=== PATIENT | female | born 1990 | race Caucasian/White ===

== ENCOUNTER 2025-01-06 10:34 | Emergency (ER) | payer OTHER, SELFPAY ==
[2025-01-06 10:48] VITALS: BP 112/78
[2025-01-06 11:07] LABS: % Basophils 0.3 % (0-2); % Eosinophils 0.3 % (0-6); % Immature Granulocytes 0.3 % (0-0.5); % Lymphocytes 12.6 % (20.5-51.1); % Monocytes 2.8 % (1.7-9.3); % Neutrophils 83.7 % (42.2-75.2); Absolute Lymphocytes 1.7 10^3/uL (1.2-3.4); Absolute Monocytes 0.4 10^3/uL (0.1-0.6); Absolute Neutrophils 11.1 10^3/uL (1.4-6.5); Hematocrit 44.2 % (37.0-47.0); Hemoglobin 14.9 g/dL (12.0-16.0); Mean Corp Hgb Conc. 33.7 g/dL (33.0-37.0); Mean Corpuscular Hgb 29.7 pg (27.0-31.0); Mean Platelet Volume 8.9 fL (7.4-10.4); Nucleated Red Blood Cells % 0 %; Platelet Count 350 10^3/uL (130-400); Red Blood Cell Count 5.02 10^6/uL (4.20-5.40); Red Cell Dist. Width 11.9 % (11.5-14.5); White Blood Cell Count 13.3 10^3/uL (4.8-10.8)
[2025-01-06 11:20] LABS: ALT (SGPT) 17 U/L (0-35); AST (SGOT) 26 U/L (14-36); Albumin 4.8 g/dl (3.5-5.0); Alkaline Phosphatase 49 U/L (38-126); Blood Urea Nitrogen 17 mg/dl (7-17); Calcium 10.2 mg/dl (8.4-10.2); Carbon Dioxide 25 mmol/L (22-30); Chloride 101 mmol/L (98-107); Glucose 97 mg/dl (70-99); Lipase 139 U/L (23-300); Potassium 4.4 mmol/L (3.5-5.1); Sodium 139 mmol/L (135-145); Total Bilirubin 1.6 mg/dl (0.2-1.3); Total Protein 8.3 g/dl (6.3-8.2); eGFR > 60.00
--- NOTE | 2025-01-06 11:37 | ED.GENMED ---
History of Present Illness
General
Chief Complaint: Abdominal Symptoms
Time Seen by Provider: 01/06/25 10:56
History of Present Illness
History of Present Illness:
Patient is a 34-year-old woman presenting to the emergency department vomiting diarrhea. Patient states that on 25 December she went to [place] developed diarrhea and took Imodium there. Came on about a week ago and the symptoms reoccurred. She
does have multiple episodes of watery diarrhea. Her primary care doctor yesterday who prescribed her azithromycin. She took her first dose this morning after she went to [facility] to have blood work, stool cultures. However patient's PCP
advised her to go to the emergency department if she has more than 6 bowel movements. The stool remains watery. No blood. No fevers or chills. She has had she called her PCP and told her to come here. Patient is not lightheaded dizzy. She is
having some nausea but also found out that she was this past week. She is about 6 weeks . She is seeing OB tomorrow.
Phy Exam
Physical Exam
Physical Exam:
GENERAL: in no acute distress
HEENT: normocephalic, extraocular movements intact, moist oral mucosa
NECK: normal inspection
RESPIRATORY: no respiratory distress, clear to auscultation bilaterally
CARDIOVASCULAR: regular rate and rhythm
ABDOMEN/: soft, non-distended, non-tender to palpation, no rebound or guarding
EXTREMITIES: non-tender, no edema/swelling
NEUROLOGIC: awake and alert, moves all extremities
SKIN: warm
Course
Orders/Labs/Results
Orders:
Orders
01/06/25 10:51
Test Result ONCE
01/06/25 10:55
Complete Blood Count/With Diff Urgent
Comprehensive Metabolic Panel Urgent
HCG, Serum Qualitative Screen Urgent
Comment: Notify provider if positive test present
Lipase Urgent
01/06/25 11:20
Pyridoxine [Vitamin B-6] 50 mg PO NOW STA
01/06/25 11:48
Stool Culture Urgent
RAISA Source: Feces/Stool
Specimen Description:
Date Specimen was Collected: 01/06/25
Time Specimen was Collected: 11:35
Abnormal Lab Results
01/06/25
10:55
WBC 13.3 H 10^3/uL
(4.8-10.8)
Absolute Neuts (auto) 11.1 H 10^3/uL
(1.4-6.5)
Neutrophils % 83.7 H %
(42.2-75.2)
Lymphocytes % 12.6 L %
(20.5-51.1)
Total Bilirubin 1.6 H mg/dl
(0.2-1.3)
Total Protein 8.3 H g/dl
(6.3-8.2)
01/06/25 10:55
01/06/25 10:55
Vital Signs
Initial and Last Documented VS:
Initial Vital Signs
Pulse Resp BP Pulse Ox
98 16 112/78 97
01/06/25 10:48 01/06/25 10:48 01/06/25 10:48 01/06/25 10:48
Last Documented Vital Signs
Pulse Resp BP Pulse Ox
98 16 112/78 97
01/06/25 10:48 01/06/25 10:48 01/06/25 10:48 01/06/25 10:48
MDM/Problems Addressed
Differential Diagnosis Includes:
Patient is a 34-year-old woman G2, P1 approximately 6 weeks presenting to the emergency department with diarrhea after recently traveling abroad. On arrival vitals unremarkable and exam is reassuring. She does have a soft benign abdomen.
Likely traveler's diarrhea. She is already on antibiotics which is reassuring. Will repeat stool culture and check blood work for dehydration. Will give p.o. fluids and nausea medications.
*Critical Care Note
Total Time (30-74mins, 75-104mins- exclusive of procedures): Not Applicable
Update Note
Update Note:
On reassessment is tolerating p.o. Blood work is noticeable for slight leukocytosis. Otherwise blood work is reassuring
Patient is positive for on blood work here. We did discuss obtaining viability ultrasound here. However given that patient is only 6 weeks and patient otherwise has no symptoms such as vaginal bleeding abdominal pain and no history of
ectopic patient would prefer to wait until she has been evaluated by her OB tomorrow.
Patient also showed me a few spots of poison vasquez to her lower extremity. She does state that she has history of poison vasquez that requires topical steroids and even p.o. steroids. On evaluation she does have a small area of contact dermatitis that
includes some vesicles already forming. Will prescribe patient topical steroids. I told her to hold off on p.o. steroids as it is not extensive and as she is .
Will discharge at this time. Patient will continue the antibiotics as already prescribed by her PCP
ED Attending Note
-
Portions of this chart may have been created with voice recognition software.� Occasional wrong word or��sound alike� substitutions may have occurred due to the inherent limitations of voice recognition software.
Discharge Plan
Departure
Patient Disposition: Home (Routine Discharge)
Date of Disposition: 01/06/25
Time of Disposition: 12:59
Patient with high blood pressure during this ER visit?: No
Discharge Problem:
Diarrhea, , Contact dermatitis due to poison vasquez
Instructions: Diarrhea in teens and adults
Prescriptions:
New
doxylamine-pyridoxine (vit B6) [Diclegis] 10-10 mg tablet,delayed release (DR/EC)
1 tab PO DAILY Qty: 30 0RF
clobetasol 0.05 % cream
1 applic topical BID 7 Days Qty: 15 0RF
No Action
prenat.vits,shaggy,afc-jciq-vmitu Tablet
1 tab PO DAILY
lactobacillus combination no.8 3 billion cell Capsule
1 cell PO DAILY
omega-3 fatty acids-vitamin E 1,000 mg Capsule
1 cap PO DAILY
acetaminophen 325 mg Tablet
650 mg PO Q4HPRN PRN (Reason: mild pain) Qty: 0 0RF
ibuprofen 600 mg Tablet
600 mg PO Q6HPRN PRN (Reason: moderate pain/cramps) Qty: 0 0RF
Referrals:
Corrie Brunson DO [Family Provider] -
Activity Restrictions/Additional Instructions:
You were seen in the Emergency Department today for diarrhea. While you were here we performed blood work, which was reassuring. Please continue taking the antibiotics. I did prescribe you a nausea medicine called Jelani. For your poison vasquez I
did start you on topical steroid. Please keep your appointment with your OB tomorrow.
We would like for you to follow up with your primary care physician for further evaluation. If you experience fever, worsening of your symptoms, or develop any other new or concerning symptoms, please return to the Emergency Department immediately.
Please see the attached sheet for additional information.
Interventions
Interventions:
*Risk Screen - Suicide Last Done: 01/06/25 10:48
*General Assessment Last Done: 01/06/25 10:48
*Neglect/Abuse Screening Last Done: 01/06/25 10:48
*ED- Fall Risk Assessment Last Done: 01/06/25 11:03
*ED COVID-19 Vaccine History Last Done: 01/06/25 11:03
GQ-Ujqboz-Xyrdsqegid Assessment Last Done: 01/06/25 11:03
Discharge Date and Time
Print Language: WELSH
[2025-01-06] MEDS: VITAMIN B-6 50 MG PO (11:46)
[2025-01-06 12:06] LABS: HCG, Serum Qualitative Screen Positive
== END 2025-01-06 13:29 | disposition home or self-care (01) ==
LOC: EMR 10:34
PROVIDERS: EMERGENCY PHYSICIAN Student in an Organized Health Care Education/Training Program; FAMILY PHYSICIAN Family Medicine
DX: O99.891 Other specified diseases and conditions complicating pregnancy (principal); R19.7 Diarrhea, unspecified; O99.711 Diseases of the skin and subcutaneous tissue complicating pregnancy, first trimester; L23.7 Allergic contact dermatitis due to plants, except food; O21.9 Vomiting of pregnancy, unspecified; Z3A.01 Less than 8 weeks gestation of pregnancy
CPT/HCPCS: 99283; 80053; 83690; 84703; 85025; 87045; 87046; 87427

== ENCOUNTER 2025-08-26 15:41 | Inpatient (IN) | payer OTHER, SELFPAY ==
[2025-08-26] MEDS: LR 1000 IV (16:00)
[2025-08-26] MEDS: MORPHINE SULFATE 2 MG IV (16:00)
[2025-08-26 16:06] VITALS: BP 95/58; BMI 25.5
[2025-08-26 17:01] LABS: Hematocrit 36.6 % (37.0-47.0); Hemoglobin 12.3 g/dL (12.0-16.0); Mean Corp Hgb Conc. 33.6 g/dL (33.0-37.0); Mean Corpuscular Volume 88.6 fL (81.0-99.0); Platelet Count 252 10^3/uL (130-400); Red Cell Dist. Width 12.5 % (11.5-14.5)
[2025-08-26] MEDS: PITOCIN 30 UNITS/NSS 500 ML IV (17:49)
[2025-08-26] MEDS: COLACE 100 MG PO (19:31)
[2025-08-26] MEDS: TYLENOL 650 MG PO (19:32)
[2025-08-26] MEDS: MOTRIN 600 MG PO (19:32)
[2025-08-27 05:09] LABS: Hematocrit 35.0 % (37.0-47.0); Hemoglobin 11.8 g/dL (12.0-16.0)
[2025-08-27] MEDS: TYLENOL 650 MG PO (08:42)
[2025-08-27] MEDS: COLACE 100 MG PO (08:42)
[2025-08-27] MEDS: MOTRIN 600 MG PO (08:42)
[2025-09-01 13:39] LABS: Syphilis/T. pallidum Ab Reflex Negative (Negative)
== END 2025-08-27 17:27 | disposition home or self-care (01) | DRG 807 ==
LOC: LDRP 15:41
PROVIDERS: ADMITTING PHYSICIAN Obstetrics & Gynecology; FAMILY PHYSICIAN Family Medicine
PROC: 0HQ9XZZ Repair Perineum Skin, External Approach (ICD-10-PCS; 2025-08-26)
PROC: 6A550ZT Pheresis of Cord Blood Stem Cells, Single (ICD-10-PCS; 2025-08-26)
PROC: 10E0XZZ Delivery of Products of Conception, External Approach (ICD-10-PCS; 2025-08-26)
DX: O42.02 Full-term premature rupture of membranes, onset of labor within 24 hours of rupture (principal); Z37.0 Single live birth; Z3A.39 39 weeks gestation of pregnancy; O70.0 First degree perineal laceration during delivery; O66.0 Obstructed labor due to shoulder dystocia; O62.3 Precipitate labor; Z82.49 Family history of ischemic heart disease and other diseases of the circulatory system; Z80.1 Family history of malignant neoplasm of trachea, bronchus and lung; Z80.0 Family history of malignant neoplasm of digestive organs; Z80.8 Family history of malignant neoplasm of other organs or systems
CPT/HCPCS: 36415; 85014; 85018; 85027; 86780; 86850; 86900; 86901; 88307